=== PATIENT | male | born 1965 | race Caucasian/White ===

== ENCOUNTER 2019-08-06 08:40 | Observation (INO) | payer OTHER ==
--- OUTSIDE RECORDS SUMMARY | 2019-08-06 08:43 | XMS REPORT ---
:1965 [facility] Address [address] [place] [address] Care Team Providers Name Role Phone Unavailable Unavailable Unavailable Payers Payer Name Policy Type Policy Number Effective Date Expiration Date Problems This patient has no known problems. Allergies, Adverse Reactions, Alerts Allergy Allergy Status Severity Reaction(s) Onset Inactive Treating Comments Name Type Date Date Clinician faina HU Active MO 2019-04 00:00:0 0 Medications This patient has no known medications. Results Test Description Test Time Test Comments Text Results Atomic Results Result Comments BASIC METABOLIC PANEL 2019-05-17 06:13:00 Test Item Value Reference Range Comments SODIUM (test code=NA) 144 MMOL/L 137-145 POTASSIUM (test code=K) 4.4 MMOL/L 3.5-5.1 CHLORIDE (test code=CL) 104 MMOL/L 98-107 CARBON DIOXIDE (test code=CO2) 30 MMOL/L 22-30 GLUCOSE (test code=GLU) 111 MG/DL 74-106 BLOOD UREA NITROGEN (test 13 MG/DL 9-20 code=BUN) GLOMERULAR FILTRATION RATE (test > 60 Reporting units: ml/min/1.73 m2 code=GFR) (Modified MDRD Formula)Reference Range: > or=60 ml/min/1.73 m2 CREATININE (test code=CREAT) 0.90 MG/DL 0.66-1.25 CALCIUM (test code=CA) 9.5 MG/DL 8.4-10.2 LIPID PROFILE (CORONARY RISK)2019-05-17 06:13:00 Test Item Value Reference Range Comments TRIGLYCERIDES (test code=TRIG) 165 MG/DL TRIGLYCERIDES REFERENCE RANGE:Normal: <150 mg/dLBorderline High: 150-199 mg/dLHigh: 200-499 mg/dLVery High: >=500 mg/dL CHOLESTEROL (test code=CHOL) 96 MG/DL <200 HDL CHOLESTEROL (test 29 MG/DL 40-59 code=HDL) LIPOPROTEIN LDL (test 66 MG/DL 0-99 code=LDL) OPTIMAL.........<100 mg/dLNEAR OPTIMAL/ABOVE OPTIMAL.........100-129 mg/dL BORDERLINE HIGH.........130-159 mg/dL HIGH.........160-189 mg/dL VERY HIGH.........>/=190 mg/dL [id number] 06:13:00 Test Item Value Reference Range Comments MAGNESIUM (test code=MAG) 2.1 MG/DL 1.6-2.3 BASIC METABOLIC [id number] 06:02:00 Test Item Value Reference Range Comments SODIUM (test code=NA) 144 MMOL/L 137-145 POTASSIUM (test code=K) 4.4 MMOL/L 3.5-5.1 CHLORIDE (test code=CL) 104 MMOL/L 98-107 CARBON DIOXIDE (test code=CO2) 30 MMOL/L 22-30 GLUCOSE (test code=GLU) 111 MG/DL 74-106 BLOOD UREA NITROGEN (test 13 MG/DL 9-20 code=BUN) GLOMERULAR FILTRATION RATE > 60 Reporting units: ml/min/1.73 (test code=GFR) m2 (Modified MDRD Formula)Reference Range: > or=60 ml/min/1.73 m2 CREATININE (test code=CREAT) 0.90 MG/DL 0.66-1.25 CALCIUM (test code=CA) 9.5 MG/DL 8.4-10.2 LIPID PROFILE (CORONARY RISK)2019-05-17 06:02:00 Test Item Value Reference Range Comments TRIGLYCERIDES (test code=TRIG) 165 MG/DL TRIGLYCERIDES REFERENCE RANGE:Normal: <150 mg/dLBorderline High: 150-199 mg/dLHigh: 200-499 mg/dLVery High: >=500 mg/dL CHOLESTEROL (test code=CHOL) 96 MG/DL <200 HDL CHOLESTEROL (test 29 MG/DL 40-59 code=HDL) LIPOPROTEIN LDL (test MG/DL 0-99 code=LDL) [id number] 06:02:00 Test Item Value Reference Range Comments MAGNESIUM (test code=MAG) 2.1 MG/DL 1.6-2.3 PROTHROMBIN [id number] 05:59:00 Test Item Value Reference Range Comments PROTHROMBIN TIME PATIENT (test 10.4 SECONDS 9.6-11.6 code=PTP) INTERNATIONAL NORMAL RATIO 1.0 0.8-1.1 The INR is to be used only (test code=INR) for monitoring oral anticoagulanttherapy. INDICATION INR VALUE 1. Prophylaxis, deep venous thrombosis, including high risk surgery. 2.0 - 3.0 2. Prophylaxis, deep venous thrombosis, hip surgery, treatment for deep venous thrombosis or pulmonary prevention of systemic embolism in patients with valvular heart disease, atrial fibrillation, tissue heart valve, or acute myocardial infarction. 2.0 - 3.0 3. Mechanical prosthesis heart valves, recurrent systemic embolism. 3.0 - 4.5 PTT [id number] 05:59:00 Test Item Value Reference Range Comments PTT ACTIVATED (test code=APTT) 26.9 SECONDS 22.0-33.0 CBC W/AUTO [id number] 05:47:00 Test Item Value Reference Range Comments WHITE BLOOD CELL (test code=WBC) 8.1 K/MM3 3.8-9.8 RED BLOOD CELL (test code=RBC) 5.29 M/MM3 3.95-5.67 HEMOGLOBIN (test code=HGB) 15.8 G/DL 12.4-16.7 HEMATOCRIT (test code=HCT) 46.7 % 35.9-49.5 MEAN CELL VOLUME (test code=MCV) 88 fL 81.7-96.1 MEAN CELL HGB (test code=MCH) 29.9 pg 27.6-33.2 MEAN CELL HGB CONCETRATION (test code=MCHC) 33.8 % 32.9-35.5 RED CELL DISTRIBUTION WIDTH (test code=RDW) 13.2 % 12.1-15.2 PLATELET COUNT (test code=PLT) 172 K/MM3 129-368 MEAN PLATELET VOLUME (test code=MPV) 10.0 fl 7.4-10.4 NEUTROPHIL % (test code=NT%) 51.9 % 43-75 IMMATURE GRANULOCYTE % (test code=IG%) 0.4 % 0.0-2.0 LYMPHOCYTE % (test code=LY%) 33.1 % 14-44 MONOCYTE % (test code=MO%) 10.9 % 4-13 EOSINOPHIL % (test code=EO%) 3.2 % 0-6 BASOPHIL % (test code=BA%) 0.5 % 0-2 NUCLEATED RBC % (test code=NRBC%) 0.0 % 0-1.0 NEUTROPHIL # (test code=NT#) 4.19 K/mm3 2.0-7.6 IMMATURE GRANULOCYTE # (test code=IG#) 0.03 x10 3/uL 0-0.03 LYMPHOCYTE # (test code=LY#) 2.67 K/mm3 1.0-3.8 MONOCYTE # (test code=MO#) 0.88 K/mm3 0.1-0.8 EOSINOPHIL # (test code=EO#) 0.26 K/mm3 0.0-0.2 BASOPHIL # (test code=BA#) 0.04 K/mm3 0.0-0.2 NUCLEATED RBC # (test code=NRBC#) 0.00 K/mm3 0.0-0.1
[2019-08-06 09:33] LABS: Protime INR 0.98
[2019-08-06 09:38] LABS: Potassium 4.5 mmol/L (3.5-5.1)
--- NOTE | 2019-08-06 09:39 | RAD REPORT ---
EXAM DESCRIPTION: CT - Ct Stroke Brain Wo Cont - 08/06/2019 9:23 am CLINICAL HISTORY: Slurred speech COMPARISON: none TECHNIQUE: Computed axial tomography of the head was obtained. All CT scans are performed using dose optimization technique as appropriate and may include automated exposure control or mA/KV adjustment according to patient size. FINDINGS: An intracranial bleed is not seen . The ventricles are normal in caliber. No extra-axial fluid collection is noted. Mild ethmoid sinusitis IMPRESSION: No acute intracranial abnormality is seen. If patient's symptoms persist MRI of the bra in would be recommended. Dr Lee of the emergency room was notified at 9:34 a.m. August 06, 2019
[2019-08-06 09:44] LABS: Basophils % 0.6 % (0-1.3); Hematocrit 43.5 % (39.6-49.0); Lymphocytes % 36.8 % (15.3-44.8); MPV 9.2 fL (7.6-11.3); RBC Red Blood Cell Count 4.91 M/uL (4.33-5.43)
--- NOTE | 2019-08-06 09:55 | EDPHYS ---
Physician Documentation [facility] Name: Yasmany Cherry Age: 54 yrs Sex: Male : 1965 Arrival Date: 08/06/2019 Time: 08:44 Bed 13 Private MD: ED Physician David Lee HPI: 08/06 09:11 This 54 yrs old Male presents to ER via Unassigned with complaints of Sore kdr Throat, Trouble Talking. 09:12 The patient presents to the emergency department with a speech or higher order brain kdr function problem, aphasia, that is mild, a swallowing problem, difficulty. Onset: The symptoms/episode began/occurred acutely, at 08:15. Context: occurred at home, occurred while the patient was eating, The patient states that he was taking a bite of his donut when the back of his tongue became numb and milk ran out of his mouth. He also could not speak - could not get his words out. Now in the ED his s/s have resolved. His s/s had resolved on the way to the ED. Associated signs and symptoms: Pertinent positives: This patient does not have any pertinent positives. Pertinent negatives:. Severity of symptoms: At their worst the symptoms were mild in the emergency department the symptoms have resolved and did so just prior to arrival. Patient's baseline: Neuro: alert and fully oriented, Motor: no deficits, Ambulation: walks without assistance, Speech: normal. Current symptoms: Currently, the patient is not experiencing any symptoms, the patient feels back to baseline, May have very slight sense of speech not being normal. The patient has not experienced similar symptoms in the past. The patient has not recently seen a physician. 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 - Ebola Screening: : Patient negative for fever greater than or equal to 101.5 degrees Fahrenheit, and additional compatible Ebola Virus Disease symptoms Patient denies exposure to infectious person Patient denies travel to an Ebola-affected area in the 21 days before illness onset No symptoms or risks identified at this time. - Social history:: Smoking status: Patient/guardian denies using tobacco. ROS: 09:12 Constitutional: Negative for fever, chills, and weight loss, Eyes: Negative for injury, kdr pain, redness, and discharge, ENT: Negative for injury, pain, and discharge, Neck: Negative for injury, pain, and swelling, Cardiovascular: Negative for chest pain, palpitations, and edema, Respiratory: Negative for shortness of breath, cough, wheezing, and pleuritic chest pain, Abdomen/GI: Negative for abdominal pain, nausea, vomiting, diarrhea, and constipation, Back: Negative for injury and pain, : Negative for injury, bleeding, discharge, and swelling, MS/Extremity: Negative for injury and deformity, Skin: Negative for injury, rash, and discoloration, Psych: Negative for depression, anxiety, suicide ideation, homicidal ideation, and hallucinations, Allergy/Immunology: Negative for hives, rash, and allergies, Endocrine: Negative for neck swelling, polydipsia, polyuria, polyphagia, and marked weight changes, Hematologic/Lymphatic: Negative for swollen nodes, abnormal bleeding, and unusual bruising. 09:12 Neuro: Positive for numbness, speech changes, Back of his tongue was numb, Negative for altered mental status, dizziness, headache, hearing loss, loss of consciousness, seizure activity, syncope, near syncope, tingling, tinnitus. Exam: 09:12 Constitutional: This is a well developed, well nourished patient who is awake, alert, kdr and in no acute distress. Head/Face: Normocephalic, atraumatic. Eyes: Pupils equal round and reactive to light, extra-ocular motions intact. Lids and lashes normal. Conjunctiva and sclera are non-icteric and not injected. Cornea within normal limits. Periorbital areas with no swelling, redness, or edema. Neck: Trachea midline, no thyromegaly or masses palpated, and no cervical lymphadenopathy. Supple, full range of motion without nuchal rigidity, or vertebral point tenderness. No Meningismus. Chest/axilla: Normal chest wall appearance and motion. Nontender with no deformity. No lesions are appreciated. Cardiovascular: Regular rate and rhythm with a normal S1 and S2. No gallops, murmurs, or rubs. Normal PMI, no JVD. No pulse deficits. Respiratory: Lungs have equal breath sounds bilaterally, clear to auscultation and percussion. No rales, rhonchi or wheezes noted. No increased work of breathing, no retractions or nasal flaring. Abdomen/GI: Soft, non-tender, with normal bowel sounds. No distension or tympany. No guarding or rebound. No evidence of tenderness throughout. Back: No spinal tenderness. No costovertebral tenderness. Full range of motion. Skin: Warm, dry with normal turgor. Normal color with no rashes, no lesions, and no evidence of cellulitis. MS/ Extremity: Pulses equal, no cyanosis. Neurovascular intact. Full, normal range of motion. Neuro: Awake and alert, GCS 15, oriented to person, place, time, and situation. Cranial nerves II-XII grossly intact. Motor strength 5/5 in all extremities. Sensory grossly intact. Cerebellar exam normal. Normal gait. Psych: Awake, alert, with orientation to person, place and time. Behavior, mood, and affect are within normal limits. Vital Signs: 09:10 BP 160 / 76; Pulse 60; Resp 16; Temp 98.2; Pulse Ox 100% on R/A; iw 09:32 BP 126 / 74; Pulse 51; Resp 16 S; Pulse Ox 98% on R/A; Pain 0/10; iw 10:30 BP 127 / 86; Pulse 54; Resp 18; Pulse Ox 99% on R/A; ph 11:30 BP 145 / 78; Pulse 58; Resp 16; Pulse Ox 99% on R/A; ph 13:30 BP 151 / 76; Pulse 54; Resp 18; Temp 98.0; Pulse Ox 99% on R/A; ph NIH Stroke Scale Scores: 08:58 NIHSS Score: 1 iw 09:12 NIHSS Score: 0 kdr MDM: 09:10 Data reviewed: vital signs, nurses notes. ED course: The patient was originally seen by [facility] at 09:00. 09:32 ED course: Awaiting Radiology read. kdr 09:34 ED course: CT Head Negative/Jeet. kdr 09:41 ED course: D/w Dr. Yeh - agrees, no tPA. kdr 09:53 Patient medically screened. kdr 08/06 09:19 Order name: Basic Metabolic Panel; Complete Time: 11:42 kdr 08/06 09:19 Order name: CBC with Diff; Complete Time: 11:42 kdr 08/06 09:19 Order name: Protime (+inr); Complete Time: 11:42 kdr 08/06 09:19 Order name: Ptt, Activated; Complete Time: 11:42 kdr 08/06 10:18 Order name: Urine Dipstick--Ancillary (enter results) bd 08/06 14:23 Order name: RPR EDMS 08/06 09:19 Order name: CT Stroke Brain w/o Contrast; Complete Time: 11:42 kdr 08/06 09:19 Order name: Stroke CXR 1 View; Complete Time: 11:42 kdr 08/06 09:19 Order name: EKG; Complete Time: 09:21 kdr 08/06 09:19 Order name: Accucheck; Complete Time: 09:29 kdr 08/06 10:37 Order name: MRA Head Wo Cont; Complete Time: 11:42 EDMS 08/06 10:37 Order name: Brain W/Wo Cont; Complete Time: 11:42 EDMS 08/06 10:37 Order name: MRA Neck W/Wo Cont; Complete Time: 11:42 EDMS 08/06 09:19 Order name: Cardiac monitoring; Complete Time: 09:39 kdr 08/06 09:19 Order name: EKG - Nurse/Tech; Complete Time: 09:29 kdr 08/06 09:19 Order name: IV Saline Lock; Complete Time: 09:28 kdr 08/06 09:19 Order name: Labs collected and sent; Complete Time: 09:29 kdr 08/06 09:19 Order name: NPO; Complete Time: 09:40 kdr 08/06 09:19 Order name: O2 Per Protocol; Complete Time: 09:29 kdr 08/06 09:19 Order name: O2 Sat Monitoring; Complete Time: 09:29 kdr Administered Medications: No medications were administered Point of Care Testing: Blood Glucose: 09:02 Blood Glucose: 175 mg/dL; iw Ranges: Critical Glucose Levels:Adult <50 mg/dl or >400 mg/dl <40 mg/dl or >180 mg/dl Disposition: 08/06/19 09:53 Hospitalization ordered by Justina Fraga for Inpatient Admission. Preliminary diagnosis is Dysarthria. - Bed requested for Telemetry/MedSurg (Inpatient). - Status is Inpatient Admission. ph - Condition is Fair. - Problem is new. - Symptoms have improved. UTI on Admission? No NIH Stroke Scale - NIH Stroke Score Date: 08/06/2019 Time: 08:58 Total Score = 1 1a. Level of Consciousness (LOC) - 0(Alert) 1b. Level of Consciousness (LOC) (Year \T\ Age) - 0(Both) 1c. LOC Commands (Open \T\ Closes Eyes/Strainer Cleaner) - 0(Both) 2. Best Gaze (Lateral Gaze Paresis) - 0(Normal) 3. Visual Field Loss - 0(No visual loss) 4. Facial Palsy - 0(Normal) 5a. Left Arm: Motor (10-second hold) - 0(No drift) 5b. Right Arm: Motor (10-second hold) - 0(No drift) 6a. Left Leg: Motor (5-second hold - always test supine) - 0(No drift) 6b. Right Leg: Motor (5-second hold - always test supine) - 0(No drift) 7. Limb Ataxia (finger/nose \T\ heel/bernal - test with eyes open) - 0(Absent) 8. Sensory Loss (pinprick arms/legs/face) - 0(Normal) 9. Best Language: Aphasia (description/naming/reading) - 0(No aphasia) 10. Dysarthria (speech clarity - read or repeat words) - 1(Mild to Moderate) 11. Extinction and Inattention (visual/tactile/auditory/spatial/personal) - 0(No abnormality) Initials: iw NIH Stroke Scale - NIH Stroke Score Date: 08/06/2019 Time: 09:12 Total Score = 0 1a. Level of Consciousness (LOC) - 0(Alert) 1b. Level of Consciousness (LOC) (Year \T\ Age) - 0(Both) 1c. LOC Commands (Open \T\ Closes Eyes/Strainer Cleaner) - 0(Both) 2. Best Gaze (Lateral Gaze Paresis) - 0(Normal) 3. Visual Field Loss - 0(No visual loss) 4. Facial Palsy - 0(Normal) 5a. Left Arm: Motor (10-second hold) - 0(No drift) 5b. Right Arm: Motor (10-second hold) - 0(No drift) 6a. Left Leg: Motor (5-second hold - always test supine) - 0(No drift) 6b. Right Leg: Motor (5-second hold - always test supine) - 0(No drift) 7. Limb Ataxia (finger/nose \T\ heel/bernal - test with eyes open) - 0(Absent) 8. Sensory Loss (pinprick arms/legs/face) - 0(Normal) 9. Best Language: Aphasia (description/naming/reading) - 0(No aphasia) 10. Dysarthria (speech clarity - read or repeat words) - 0(Normal) 11. Extinction and Inattention (visual/tactile/auditory/spatial/personal) - 0(No abnormality) Initials: kdr Signatures: Dispatcher [employer] EDMS Agnieszka Portillo bd David Lee MD MD kdr Mena Cherry RN RN Ronda Marsh RN RN ph Corrections: (The following items were deleted from the chart) 10:35 09:21 MR STROKE PROTOCOL+MRI.RAD.BRZ ordered. [facility] EDMA 13:19 09:53 Hospitalization Ordered by Justina Fraga MD for Inpatient Admission. bd Preliminary diagnosis is Dysarthria. Bed requested for Telemetry/MedSurg (Inpatient). Status is Inpatient Admission. Condition is Fair. Problem is new. Symptoms have improved. UTI on Admission? No. kdr 14:39 13:19 08/06/2019 09:53 Hospitalization Ordered by Justina Fraga MD for ph Inpatient Admission. Preliminary diagnosis is Dysarthria. Bed requested for Telemetry/MedSurg (Inpatient). Status is Inpatient Admission. Condition is Fair. Problem is new. Symptoms have improved. UTI on Admission? No. bd
--- NOTE | 2019-08-06 09:55 | ER ---
Nurse's Notes [facility] Name: Yasmany Cherry Age: 54 yrs Sex: Male : 1965 Arrival Date: 08/06/2019 Time: 08:44 Bed 13 Private MD: Diagnosis: Dysarthria Presentation: 08/06 08:53 Presenting complaint: states: pt was eating a donut and drinking milk at 0815 this iw morning, all of a sudden he couldn't talk, speech is starting to come back now, pt states his tongue felt weird and the milk dribbled out of his mouth and he was having a head time getting words out, denies weakness, no facial droop, woke up at 0530 this morning and was normal. 08:53 Transition of care: patient was not received from another setting of care. Pre-hospital iw glucose is not applicable to this patient. Onset of symptoms was August 06, 2019. Onset of symptoms was August 06, 2019 at 08:15. Risk Assessment: Do you want to hurt yourself or someone else? Patient reports no desire to harm self or others. Initial Sepsis Screen: Does the patient meet any 2 criteria? No. Patient's initial sepsis screen is negative. Does the patient have a suspected source of infection? No. Patient's initial sepsis screen is negative. Care prior to arrival: None. 08:53 Method Of Arrival: Ambulatory iw 08:53 Acuity: HONEY 2 iw Stroke Activation: Symptom onset < 3 hours Physician: Stroke Attending; Name: ; Notified At: ; Arrived At: Physician: Chief Stroke Resident; Name: ; Notified At: ; Arrived At: Physician: Stroke Resident; Name: ; Notified At: ; Arrived At: Physician: ED Attending; Name: Dr. Lee; Notified At: ; Arrived At: Physician: ED Resident; Name: ; Notified At: ; Arrived At: Historical: - Allergies: 09:13 Codeine; iw - Home Meds: 09:13 Plavix 75 mg Oral tab 1 tab once daily [Active]; Lisinopril Oral once daily [Active]; iw Lipitor Oral [Active]; 09:42 Metoprolol Tartrate Oral [Active]; iw - PMHx: 09:13 Myocardial infarction; iw - PSHx: 09:13 CABG; RIGHT LEG; iw - Immunization history:: Adult Immunizations unknown. - Ebola Screening: : Patient negative for fever greater than or equal to 101.5 degrees Fahrenheit, and additional compatible Ebola Virus Disease symptoms Patient denies exposure to infectious person Patient denies travel to an Ebola-affected area in the 21 days before illness onset No symptoms or risks identified at this time. - Social history:: Smoking status: Patient/guardian denies using tobacco. Screenin:27 Abuse screen: Denies threats or abuse. Denies injuries from another. Nutritional iw screening: No deficits noted. Tuberculosis screening: No symptoms or risk factors identified. Fall Risk IV access (20 points). Assessment: 08:58 VAN Scoring: Arm Drift: Patients demonstrates NO arm weakness. Patient is VAN Negative. iw 08:58 General: Appears in no apparent distress. Behavior is calm, cooperative. Pain: Denies iw pain. Neuro: Level of Consciousness is awake, alert, obeys commands, Oriented to person, place, time, situation, Moves all extremities. Full function. Neuro: Reports difficulty swallowing difficulty speaking that started at 0815 today . Cardiovascular: Patient's skin is warm and dry. Respiratory: Airway is patent Respiratory effort is even, unlabored, Breath sounds are clear bilaterally. 09:00 Reassessment: Dr. Lee at bedside to assess patient. iw 09:18 Reassessment: pt back to ER bed 13 via stretcher. iw 09:34 Reassessment: Dr. Marcano reports Ct is negative. iw 09:38 Reassessment: Patient appears in no apparent distress at this time. Patient and/or ph family updated on plan of care and expected duration. Pain level reassessed. Patient is alert, oriented x 3, equal unlabored respirations, skin warm/dry/pink. Pt ambulated to restroom w/ no gait disturbance noted, taken to MRI via wheelchair. 11:20 Patient has been NPO before screening. The patient is alert, and able to follow commands. The patient does not exhibit slurred or garbled speech. The patient is not exhibiting difficulty speaking. The patient does not exhibit difficulty understanding words. The patient is able to swallow own secretions with no drooling or need for suction. Patient tolerated one teaspoon of water. No drooling, immediate coughing, gurgling, or clearing of the throat was noted. The patient tolerated 90mL of water. No drooling, immediate coughing, gurgling, or clearing of the throat was noted. The patient passed the bedside swallow screening. Oral medications may be given as ordered. Contact Physician for further diet orders. Provider notified of bedside swallow screening results: David Lee MD. 12:30 Reassessment: Patient appears in no apparent distress at this time. Patient and/or ph family updated on plan of care and expected duration. Pain level reassessed. Patient is alert, oriented x 3, equal unlabored respirations, skin warm/dry/pink. 13:48 Reassessment: Patient appears in no apparent distress at this time. Patient and/or ph family updated on plan of care and expected duration. Pain level reassessed. Patient is alert, oriented x 3, equal unlabored respirations, skin warm/dry/pink. ECHO at bedside. Vital Signs: 09:10 BP 160 / 76; Pulse 60; Resp 16; Temp 98.2; Pulse Ox 100% on R/A; iw 09:32 BP 126 / 74; Pulse 51; Resp 16 S; Pulse Ox 98% on R/A; Pain 0/10; iw 10:30 BP 127 / 86; Pulse 54; Resp 18; Pulse Ox 99% on R/A; ph 11:30 BP 145 / 78; Pulse 58; Resp 16; Pulse Ox 99% on R/A; ph 13:30 BP 151 / 76; Pulse 54; Resp 18; Temp 98.0; Pulse Ox 99% on R/A; ph NIH Stroke Scale Scores: 08:58 NIHSS Score: 1 iw 09:12 NIHSS Score: 0 kdr ED Course: 08:44 Patient arrived in ED. mr 09:08 Inserted saline lock: 20 gauge in right antecubital area, using aseptic technique. iw 09:09 David Lee MD is Attending Physician. kdr 09:22 Ronda Marsh, CLARE is Primary Nurse. ph 09:25 EKG done, by tool repair technician. reviewed by David Lee MD. at1 09:26 Triage completed. iw 09:26 Arm band placed on. iw 09:27 CT Stroke Brain w/o Contrast In Process Unspecified. EDMS 09:30 Patient has correct armband on for positive identification. Bed in low position. Call ph light in reach. Side rails up X 1. playground monitor on. Pulse ox on. NIBP on. Door closed. Noise minimized. Warm blanket given. 09:41 X-ray completed. Portable x-ray completed in exam room. Patient tolerated procedure jb2 well. 09:42 Justina Fraga MD is Hospitalizing Provider. kdr 09:45 Stroke CXR 1 View In Process Unspecified. EDMS 10:02 No provider procedures requiring assistance completed. Patient admitted, IV remains in ph place. 10:48 MRA Head Wo Cont In Process Unspecified. EDMS 10:48 Brain W/Wo Cont In Process Unspecified. EDMS 10:48 MRA Neck W/Wo Cont In Process Unspecified. EDMS Administered Medications: No medications were administered Point of Care Testing: Blood Glucose: 09:02 Blood Glucose: 175 mg/dL; iw Ranges: Outcome: 09:53 Decision to Hospitalize by Provider. kdr 14:39 Patient left the ED. ph 14:39 Admitted to Tele accompanied by tech, family with patient, with chart. ph 14:39 Condition: stable 14:39 Instructed on the need for admit. NIH Stroke Scale - NIH Stroke Score Date: 08/06/2019 Time: 08:58 Total Score = 1 1a. Level of Consciousness (LOC) - 0(Alert) 1b. Level of Consciousness (LOC) (Year \T\ Age) - 0(Both) 1c. LOC Commands (Open \T\ Closes Eyes/Log Clerk) - 0(Both) 2. Best Gaze (Lateral Gaze Paresis) - 0(Normal) 3. Visual Field Loss - 0(No visual loss) 4. Facial Palsy - 0(Normal) 5a. Left Arm: Motor (10-second hold) - 0(No drift) 5b. Right Arm: Motor (10-second hold) - 0(No drift) 6a. Left Leg: Motor (5-second hold - always test supine) - 0(No drift) 6b. Right Leg: Motor (5-second hold - always test supine) - 0(No drift) 7. Limb Ataxia (finger/nose \T\ heel/bernal - test with eyes open) - 0(Absent) 8. Sensory Loss (pinprick arms/legs/face) - 0(Normal) 9. Best Language: Aphasia (description/naming/reading) - 0(No aphasia) 10. Dysarthria (speech clarity - read or repeat words) - 1(Mild to Moderate) 11. Extinction and Inattention (visual/tactile/auditory/spatial/personal) - 0(No abnormality) Initials: NIH Stroke Scale - NIH Stroke Score Date: 08/06/2019 Time: 09:12 Total Score = 0 1a. Level of Consciousness (LOC) - 0(Alert) 1b. Level of Consciousness (LOC) (Year \T\ Age) - 0(Both) 1c. LOC Commands (Open \T\ Closes Eyes/Log Clerk) - 0(Both) 2. Best Gaze (Lateral Gaze Paresis) - 0(Normal) 3. Visual Field Loss - 0(No visual loss) 4. Facial Palsy - 0(Normal) 5a. Left Arm: Motor (10-second hold) - 0(No drift) 5b. Right Arm: Motor (10-second hold) - 0(No drift) 6a. Left Leg: Motor (5-second hold - always test supine) - 0(No drift) 6b. Right Leg: Motor (5-second hold - always test supine) - 0(No drift) 7. Limb Ataxia (finger/nose \T\ heel/bernal - test with eyes open) - 0(Absent) 8. Sensory Loss (pinprick arms/legs/face) - 0(Normal) 9. Best Language: Aphasia (description/naming/reading) - 0(No aphasia) 10. Dysarthria (speech clarity - read or repeat words) - 0(Normal) 11. Extinction and Inattention (visual/tactile/auditory/spatial/personal) - 0(No abnormality) Initials: [facility] Signatures: Dispatcher [employer] EDDavid Carrizales MD MD [facility] Eldridge Kaci McknightSathish jb2 Mena Cherry, CLARE RN iw Olinda Alexander, database design analyst EKG Tat1 Ronda Marsh RN RN ph Corrections: (The following items were deleted from the chart) 09:26 09:10 Presenting complaint: states: pt was eating a donut and drinking milk at 0815 this morning, all of a sudden he couldn't talk, speech is starting to come back now, pt states his tongue felt weird and the milk dribbled out of his mouth and he was having a head time getting words out, denies weakness, no facial droop, woke up at 0530 this morning and was normal iw
--- NOTE | 2019-08-06 10:23 | RAD REPORT ---
EXAM DESCRIPTION: Miguel Single View08/06/2019 9:41 am CLINICAL HISTORY: CVA COMPARISON: none FINDINGS: The lungs appear clear of acute infiltrate. The heart is borderline enlarged Postsurgical changes involve the chest IMPRESSION: No acute abnormalities displayed
--- NOTE | 2019-08-06 11:01 | RAD REPORT ---
EXAM DESCRIPTION: MRI - Brain W/Wo Cont - 08/06/2019 10:49 am CLINICAL HISTORY: Aphasia, difficulty swallowing, stroke-like symptoms COMPARISON: CT head August 06 TECHNIQUE: Sagittal and axial T1-weighted images were obtained. Axial PD/heavily T2-weighted and T2- FLAIR images were obtained along with axial DWI/ADC mapping sequences. Coronal heavily T2 weighted s equence obtained. Axial and coronal post-contrast T1-weighted images were also obtained. A ml Multi leonie contrast following utilized. FINDINGS: No intracranial hemorrhage present. There is no mass effect, edema or shift of midline str uctures. Diffusion-weighted imaging shows a minimal focus of low-level increased signal in the subcor tical white matter anterior superior left frontal lobe. . No correlate on ADC mapping for the T2/IR s equences. This may be a minute focus of subacute infarction no other signal abnormality. Patient has only trace amounts of cerebral white matter signal abnormality. No atrophy changes seen. Ventricles a re normal. Signal voids are seen as a normal finding in the major intracranial vessels. Post-contrast images show normal enhancement. No dural thickening. Mastoid air cells and paranasal sinuses are clear. No globe or orbital content abnormality. Sella and suprasellar regions show no suspicious finding. No tonsillar ectopia. IMPRESSION: No acute infarction changes are present. There is no hemorrhage or other acute intracran ial finding. Patient has only trace amounts of T2 signal abnormality. On diffusion-weighted imaging there is a min imal focus of increased signal in the superolateral left frontal lobe. No T2/IR or ADC mapping signal correlate. This may be a small focus of subacute infarction.
--- NOTE | 2019-08-06 11:03 | RAD REPORT ---
EXAM DESCRIPTION: MRI - MRA Head Wo Cont - 08/06/2019 10:49 am CLINICAL HISTORY: Aphasia, difficulty swallowing, stroke-like symptoms COMPARISON: MRI head same date, MRA neck same date, CT head same date TECHNIQUE: Axial and coronal 3D [id number] image acquisition was performed. 3D rotational images were generated with source and reconstruction images reviewed. Horizontal and vertical axis rotation al views generated using MIP protocol. FINDINGS: Major venous sinuses are patent. Tortuosity of the vertebrobasilar vasculature noted. Left vertebral artery is dominant. There is no s tenosis, dissection or acute finding of the posterior circulation. Posterior cerebral artery show no significant findings. Bilateral internal carotid artery's from the skullbase determination show no suspicious findings. The anterior and middle cerebral artery distributions also without significant atherosclerotic change. T here is some questionable disease in the proximal aspect of each A2 segment of the anterior cerebral arteries. No aneurysm or vascular malformation. IMPRESSION: MRI head examination shows no significant findings. Patient may have minimal atherosclerotic change in the proximal portions of the bilateral anterior ce rebral arteries.
--- NOTE | 2019-08-06 11:06 | RAD REPORT ---
EXAM DESCRIPTION: MRI - MRA Neck W/Wo Cont - 08/06/2019 10:49 am CLINICAL HISTORY: Aphasia, difficulty swallowing, you had stroke-like symptoms COMPARISON: CT head stroke protocol study August 06 TECHNIQUE: Axial and coronal 3D [id number] image acquisition was performed. 3D rotational images were generated with source and reconstruction images reviewed. Horizontal and vertical axis rotation al views generated using MIP protocol. FINDINGS: Aortic arch is 3 vessel configuration. No stenosis or significant finding at the great ves blanka or vertebral artery origins. Imaged portions of each subclavian artery normal in appearance as we ll. Bilateral common carotid arteries are unremarkable. Internal carotid arteries from origin to skullbas e show tortuosity but no dissection or stenosis. No significant atherosclerotic changes identifiable. Left vertebral artery is dominant. No dissection or acute vertebral artery finding. IMPRESSION: MRA neck examination shows no significant or suspicious finding.
[2019-08-06 13:51] LABS: Urine Blood TRACE (NEG); Urine Glucose NEGATIVE (NEG); Urine Protein NEGATIVE (NEG); Urine pH 5.5 (5.0-7.0)
[2019-08-06] MEDS ORDERED: ONDANSETRON 4 MG/2 ML VIAL IV PRN (14:19)
[2019-08-06 14:49] LABS: Thyroid Stimulating Hormone 1.1 uIU/mL (0.360-3.740)
[2019-08-06 14:51] VITALS: TEMP 98.2
[2019-08-06 14:53] VITALS: BP 126/74; O2SAT 98
[2019-08-06] MEDS ORDERED: ENOXAPARIN 40 MG/0.4 ML SQ SCH (15:00)
[2019-08-06 16:02] VITALS: BMI 36.4
--- NOTE | 2019-08-06 16:06 | P.SSS ---
Patient History Date of Service: 08/06/19 Primary Care Provider: None Reason for admission: Difficulity with Speech History of Present Illness: 54-year-old male with significant past medical history of hypertension and CAD who presented to the ED with difficulty speaking. at bedside states pt was eating a donut and drinking milk at 0815 this morning, all of a sudden he couldn 't talk, his tongue felt weird and the milk dribbled out of his mouth. Patient states he was not able to find words out. Patient stated that around 530 when he woke up in the morning he was feeling fine. No other complaints to offer. Has not had similar symptoms in the past. Denies having any chest pain shortness of breath weakness, no facial droop, or any other symptoms at this time. Denies having any fever chills nausea vomiting as well. Allergies codeine Allergy (Verified 08/06/19 13:00) UNK Home Medications: Atorvastatin Calcium [Lipitor*] 80 mg PO BEDTIME 08/06/19 Clopidogrel Bisulfate [Plavix*] 1 tab PO DAILY 08/06/19 Lisinopril [Prinivil*] 1 tab PO BID 08/06/19 - Past Medical/Surgical History Has patient received pneumonia vaccine in the past: No Diabetic: No -: HTN -: HLD -: [place] x2 -: CABG - Social History Smoking Status: Former smoker Alcohol use: No CD- Drugs: No Caffeine use: Yes Place of Residence: Home Review of Systems 10-point ROS is otherwise unremarkable Physical Examination - Vital Signs Temperature: 98.2 F Blood Pressure: 126/74 Pulse: 51 Respirations: 16 - Physical Exam General: Alert, In no apparent distress HEENT: Atraumatic, PERRLA, Mucous membr. moist/pink, EOMI, Sclerae nonicteric Neck: Supple, 2+ carotid pulse no bruit, No LAD, Without JVD or thyroid abnormality Respiratory: Clear to auscultation bilaterally, Normal air movement Cardiovascular: Regular rate/rhythm, Normal S1 S2 Gastrointestinal: Normal bowel sounds, No tenderness Musculoskeletal: No tenderness Integumentary: No rashes Neurological: Normal gait, Normal speech, Normal strength at 5/5 x4 extr, Normal tone, Normal affect Lymphatics: No axilla or inguinal lymphadenopathy - Studies Laboratory Data (last 24 hrs) 08/06/19 09:09: PT 11.6, INR 0.98, APTT 31.5 08/06/19 09:09: WBC 5.6, Hgb 15.0, Hct 43.5, Plt Count 143 L 08/06/19 09:09: Sodium 139, Potassium 4.5, BUN 13, Creatinine 1.09, Glucose 174 H - Diagnosis (Problem(s)) (1) TIA (transient ischemic attack) Current Visit: Yes Status: Ruled-out Plan: Patient with difficulty speaking and numbness and tingling on the tongue on presentation. Now resolved -head CT negative for any acute abnormality -MRI negative for any acute CVA versus TIA -echocardiogram within normal limits as well -all the lab work within normal limits as well -neurology consulted appreciated recommendations -recommended Dc home on aspirin Plavix and statin -patient educated to get over the counter aspirin and continue taking his Plavix and statin that he takes at home -discharge patient home under stable condition (2) HTN (hypertension) Current Visit: Yes Status: Chronic Plan: Stable at this time Qualifiers: Hypertension type: essential hypertension Qualified Code(s): I10 - Essential (primary) hypertension (3) CAD (coronary artery disease) Current Visit: Yes Status: Chronic Plan: Stable at this time Qualifiers: Coronary Disease-Associated Artery/Lesion type: [place] artery [place] vs. transplanted heart: [place] heart Associated angina: without angina Qualified Code(s): I25.10 - Atherosclerotic heart disease of [place] coronary artery without angina pectoris Treatment Summary: Patient was admitted to the hospital for workup of TIA. Patient had head CT and MRI which were all negative TIA workup was negative. Patient was thus discharged home under stable condition. Aspirin Plavix and statin were recommended to the patient. - Disposition Disposition: ROUTINE DISCHARGE Condition: GOOD Patient Discharge Instructions: Please followup with Neurology tomorrow morning at 9:00 a.m. in the office. New medication. Aspirin 81 mg daily. Plavix and atorvastatin that you take a home please continue that. Also continue taking all other medication as prescribed by PCP. Diet: Regular Activity: Ad isaac
--- NOTE | 2019-08-06 16:58 | EKG ---
Test Date: 2019-08-06 Test Time: 09:21:26 Atomic Process Engineer: KRIS MEASUREMENT RESULTS: Intervals: Rate: 49 AK: 162 QRSD: 144 QT: 432 QTc: 390 Gunter: P: 69 AK: 162 QRS: -30 T: 28 INTERPRETIVE STATEMENTS: Marked sinus bradycardia Left axis deviation Nonspecific intraventricular block Abnormal ECG No previous ECG available for comparison Electronically Signed On 08-06-19 16:56:45 CDT by Santino Tellez
[2019-08-06] MEDS ORDERED: ATORVASTATIN 40 MG TAB PO SCH (21:00)
[2019-08-07 03:40] LABS: RPR (Rapid Plasma Reagin) NON-REACT (NON-REACT)
--- NOTE | 2019-08-07 08:18 | ECHO ---
HEIGHT: 5 ft 6 in WEIGHT: 226 lb 0 oz DATE OF STUDY: 08/06/[address]: Justina Fraga MD 2-DIMENSIONAL: YES M.MODE: YES DOPPLER: YES COLOR FLOW: YES TDS: YES PORTABLE: NO DEFINITY: NO BUBBLE STUDY: NO DIAGNOSIS: TRANSIENT ISCHEMIC ATTACK CARDIAC HISTORY: CATHERIZATION: NO SURGERY: YES PROSTHETIC VALVE: NO PACEMAKER: NO MEASUREMENTS (cm) DIASTOLIC (NORMALS) SYSTOLIC (NORMALS) IVSd 1.0 (0.6-1.2) LA Diam 3.9 (1.9-4.0) LVEF 69% LVIDd 4.6 (3.5-5.7) LVIDs 2.8 (2.0-3.5) %FS 39% LVPWd 1.2 (0.6-1.2) Ao Diam 3.0 (2.0-3.7) 2 DIMENSIONAL ASSESSMENT: RIGHT ATRIUM: NORMAL LEFT ATRIUM: NORMAL RIGHT VENTRICLE: NORMAL LEFT VENTRICLE: NORMAL TRICUSPID VALVE: NORMAL MITRAL VALVE: NORMAL PULMONIC VALVE: NORMAL AORTIC VALVE: NORMAL PERICARDIAL EFFUSION: NONE AORTIC ROOT: NORMAL LEFT VENTRICULAR WALL MOTION: NORMAL DOPPLER/COLOR FLOW: NORMAL COMMENTS: NORMAL 2D ECHOCARDIOGRAM WITH DOPPLER. NO WALL MOTION ABNORMALITY. NO VEGETATION. NO THROMBUS. TECHNOLOGIST: Guerrero AVENDAÑO
[2019-08-07] MEDS ORDERED: ASPIRIN EC 81 MG TAB PO SCH (09:00)
[2019-08-07] MEDS ORDERED: ENOXAPARIN 40 MG/0.4 ML SQ SCH (09:00)
== END 2019-08-06 18:27 | disposition home or self-care (01) ==
LOC: ER 08:40 → ERHOLD 12:33 → 2ND 14:02
PROVIDERS: ADMIT Family Medicine; ATTEND Family Medicine
DX: G45.9 Transient cerebral ischemic attack, unspecified (principal); I10 Essential (primary) hypertension; I25.10 Atherosclerotic heart disease of native coronary artery without angina pectoris; E78.5 Hyperlipidemia, unspecified; I25.2 Old myocardial infarction; Z95.1 Presence of aortocoronary bypass graft; Z87.891 Personal history of nicotine dependence
CPT/HCPCS: 36415; 70450; 70544; 70549; 70553; 71045; 80048; 80061; 81003; 82962; 84443; 85025; 85610; 85652; 85730; 86592; 93005; 93306; 99285; A9577; G0378